=== PATIENT | female | born 1985 | race Two or more races ===

== ENCOUNTER 2023-01-13 11:35 | Emergency (ER) | payer OTHER | END 2023-01-14 01:53 | disposition left against medical advice (07) | LOC: ER 11:35 | DX: Z53.21 Procedure and treatment not carried out due to patient leaving prior to being seen by health care provider (principal) ==

== ENCOUNTER → 2024-12-24 | Emergency (ER) | payer OTHER ==
[~2024-12-24] VITALS: Ht 160 cm; Wt 65.8 kg
[~2024-12-24] MED LIST: KETOROLAC TROMETHAMINE 60 MG VIAL IM ONE
== END | disposition left against medical advice (07) ==
LOC: ER 11:22
DX: S00.03XA Contusion of scalp, initial encounter (principal); Y08.89XA Assault by other specified means, initial encounter; Y93.89 Activity, other specified; Y92.018 Other place in single-family (private) house as the place of occurrence of the external cause; S50.311A Abrasion of right elbow, initial encounter; Z88.8 Allergy status to other drugs, medicaments and biological substances